=== PATIENT | male | born 1990 | race Caucasian/White ===

== ENCOUNTER 2024-12-14 05:06 | Emergency (ER) | payer OTHER ==
[~2024-12-14] VITALS: Ht 177.8 cm; Wt 103.0 kg
[2024-12-14] MEDS ORDERED: DIPHTH,PERTUSS(ACELL),TET VAC 0.5 ML SYRINGE IM ONE (05:15)
[2024-12-14 05:23] LABS: BASOPHILS 0.2 % (0.2-1.2); EOSINOPHILS 0.9 % (0.8-7.0); LYMPHOCYTES 28.6 % (21.8-53.1); MCH 28.6 PG (25.7-32.2); MCHC 32.9 g/dL (32.3-36.5); MCV 86.9 fL (79.0-92.2); MONOCYTES 4.8 % (5.3-12.2); NEUTROPHILS 64.9 % (34.0-67.9); RBC 5.25 M/uL (4.63-6.08)
[2024-12-14 05:38] LABS: ALCOHOL, MEDICAL <3 ng/dL (<3); ALT (SGPT) 306 U/L (14-59); AST (SGOT) 224 U/L (15-37); GLOMERULAR FILTRATION RATE,EST 112 mL/min (>60); PROTEIN, TOTAL 7.3 g/dL (6.4-8.2); UREA NITROGEN 19 mg/dL (7-18)
[2024-12-14] MEDS ORDERED: fentaNYL citrate 100 MCG/2 ML VIAL IV ONE (06:00)
[2024-12-14 06:06] LABS: ABO A; ANTIBODY SCREEN NEGATIVE; RH POSITIVE
[2024-12-14] MEDS ORDERED: HYDROmorphone HCL 1 MG/ML SYR IV ONE ×2 (06:30→07:45)
[2024-12-14] MEDS ORDERED: SODIUM CHLORIDE 0.9% 1,000 ML IV PRN (06:30)
[2024-12-14] MEDS ORDERED: LACTATED RINGER'S 1,000 ML IV ONE (06:45)
[2024-12-14 09:21] LABS: BLOOD/HGB, URINE SMALL (Negative); KETONE, URINE NEGATIVE (Negative); LEUK ESTERASE, URINE NEGATIVE (negative); NITRITE, URINE NEGATIVE (negative)
[2024-12-14 09:40] LABS: BACTERIA, URINE RARE /hpf (negative); CASTS, URINE NONE SEEN \\lpf; CRYSTALS, URINE NONE SEEN (0-1+); EPITHELIAL CELLS, URINE 0 /lpf (0-1+); REFLEX CULTURE, URINE No (No)
[2024-12-14 09:41] LABS: AMPHETAMINES, URINE NEGATIVE (NEGATIVE); BARBITURATES, URINE NEGATIVE (NEGATIVE); BENZODIAZEPINE, URINE NEGATIVE (NEGATIVE); CANNABINOID, URINE NEGATIVE (NEGATIVE); COCAINE, URINE NEGATIVE (NEGATIVE); ECSTASY, URINE NEGATIVE (NEGATIVE); FENTANYL, URINE POSITIVE (NEGATIVE); METHADONE, URINE NEGATIVE (NEGATIVE); OPIATES, URINE POSITIVE (NEGATIVE); OXYCODONE, URINE NEGATIVE (NEGATIVE); PHENCYCLIDINE, URINE NEGATIVE (NEGATIVE)
[2024-12-14 10:10] VITALS: BP 98/72
--- NOTE | 2024-12-15 06:07 | EKG ---
[facility] [address] [facility] [place], [place] [address] Signed Sinus tachycardia Otherwise normal ECG No previous ECGs available Confirmed by EDU FRANCO MD ([id number]) on 12/15/2024 6:07:06 AM Electronically Signed By: EDU FRANCO 12/15/24 0607 PATIENT NAME: SHERICE NOEL Electrocardiogram DATE OF : [birth year] PHYSICIAN: EDU FRANCO REPORT #: [id number] REPORT IS CONFIDENTIAL AND NOT TO BE RELEASED WITHOUT AUTHORIZATION
== END 2024-12-14 10:10 | disposition short-term general hospital (02) ==
LOC: ED 05:06
PROVIDERS: Internal Medicine
DX: S32.461A Displaced associated transverse-posterior fracture of right acetabulum, initial encounter for closed fracture (principal); S32.411A Displaced fracture of anterior wall of right acetabulum, initial encounter for closed fracture; S61.213A Laceration without foreign body of left middle finger without damage to nail, initial encounter; S61.411A Laceration without foreign body of right hand, initial encounter; S01.81XA Laceration without foreign body of other part of head, initial encounter; V69.9XXA Occupant (driver) (passenger) of heavy transport vehicle injured in unspecified traffic accident, initial encounter
CPT/HCPCS: 27250; 36415; 64473; 70450; 70486; 71045; 71260; 72125; 72170; 73130; 74177; 80053; 80307; 81001; 82550; 83690; 85025; 86850; 86900; 86901; 90471; 93005; 93010; 96374; 96376; 99151; 99285-25; G0480; J1171; J2704; J3010; J7030; J7121; Q9967